=== PATIENT | female | born 1985 | race Caucasian/White ===

== ENCOUNTER 2018-06-05 21:29 | Inpatient (IN) | payer MEDICAID ==
[~2018-06-05] VITALS: Ht 154.9 cm; Wt 108.9 kg
[~2018-06-05 21:29] MED LIST: PNV1TABL76 MT
[2018-06-05 23:07] LABS: CLARITY URINE CLOUDY (CLEAR); COLOR URINE YELLOW (YELLOW); KETONES URINE TRACE (NEGATIVE); LEUKOCYTE ESTERASE URINE 1+ (NEGATIVE); NITRITE URINE NEGATIVE (NEGATIVE); OCCULT BLOOD URINE NEGATIVE (NEGATIVE); PH URINE 6.5 (4.5-8.0); PROTEIN URINE NEGATIVE (NEGATIVE)
[2018-06-05] MEDS: TERBUTALINE SULFATE 1MG/ML VIAL SUBCUT PRN (23:29)
[2018-06-05] MEDS ORDERED: CEFAZOLIN 2,000 MG in DEXT 5% WATER 100 ML IV SCH (23:30)
[2018-06-05] MEDS: LACTATED RINGERS 1,000 ML IV SCH (23:32)
[2018-06-06] MEDS ORDERED: CARBOPROST TROMETHAMINE 250 MCG/ML AMPUL IM PRN (01:00)
[2018-06-06] MEDS ORDERED: MISOPROSTOL 100MCG TABLET VG SCH (01:00)
[2018-06-06] MEDS ORDERED: BUTORPHANOL TARTRATE 2 MG/ML VIAL IV PRN ×3 (01:00→08:45)
[2018-06-06] MEDS ORDERED: DEXT 5%/LR + PITOCIN 20UNITS/L 1,000 ML IV SCH ×2 (01:00→07:30)
[2018-06-06] MEDS ORDERED: METHYLERGONOVINE MALEATE 0.2 MG/ML IM PRN (01:00)
[2018-06-06] MEDS ORDERED: NALOXONE HCL 0.4 MG/ML 1ML VIAL IM PRN (01:00)
[2018-06-06 01:26] LABS: BASOPHILS % 0.1 % (0.0-2.0); EOSINOPHILS % 0.8 % (0.0-5.0); HEMATOCRIT. 36.1 % (36.0-48.0); LYMPHOCYTES % 18.5 % (20.0-50.0); MEAN CORPUSCULAR VOLUME 90.2 fL (81.0-99.0); MEAN PLATELET VOLUME 10.4 fl (7.4-10.4); MONOCYTES % 6.4 % (2.0-8.0); NEUTROPHILS % 74.2 % (40.0-76.0); PLATELET 224 x1000/uL (130-400); RED CELL DISTRIBUTION WIDTH 14.3 % (11.6-14.6)
[2018-06-06 01:34] LABS: *AMPHETAMINES SCREEN URINE NEGATIVE (NEGATIVE); *BARBITURATES SCREEN URINE NEGATIVE (NEGATIVE); *BENZODIAZEPINES SCREEN URINE NEGATIVE (NEGATIVE); *COCAINE SCREEN URINE NEGATIVE (NEGATIVE); METHADONE URINE SCREEN NEGATIVE (NEGATIVE); OPIATES URINE SCREEN NEGATIVE (NEGATIVE)
[2018-06-06 01:35] LABS: CANNABINOID URINE SCREEN NEGATIVE (NEGATIVE); PHENCYCLIDINE URINE SCREEN NEGATIVE (NEGATIVE)
[2018-06-06] MEDS ORDERED: EPHEDRINE SULFATE 50MG/ML VIAL ONE (02:11)
[2018-06-06] MEDS ORDERED: OXYTOCIN 10 UNITS/ML 1ML ONE ×2 (02:11→06:33)
[2018-06-06] MEDS ORDERED: SODIUM CHLORIDE 0.9% 10ML VIAL ONE (02:11)
[2018-06-06] MEDS ORDERED: FENTANYL CITRATE/PF 50MCG/ML 2ML VIAL ONE (02:11)
[2018-06-06] MEDS ORDERED: GLYCOPYRROLATE 0.2 MG/ML 2ML VIAL ONE (02:11)
[2018-06-06] MEDS ORDERED: ONDANSETRON HCL 4MG/2ML INJ ONE (02:11)
[2018-06-06] MEDS ORDERED: PHENYLEPHRINE HCL 10 MG/ML 1ML (IV VIAL) IV ONE (02:11)
[2018-06-06] MEDS ORDERED: MORPHINE SULFATE/PF 1MG/ML 10ML AMP ONE (02:12)
[2018-06-06] MEDS ORDERED: BUPIVACAINE HCL/DEXTROSE/PF 0.75% 2ML AMP INJ ONE (02:12)
[2018-06-06 02:32] LABS: PARTIAL THROMBOPLASTIN TIME 23.6 sec (23.4-31.0); PROTHROMBIN TIME 9.6 sec (9.1-11.1)
[2018-06-06 02:38] LABS: HEPATITIS B SURFACE ANTIGEN NEGATIVE
[2018-06-06] MEDS ORDERED: CEFAZOLIN 2000MG PREMIX 50 ML IV ONE (02:48)
[2018-06-06] MEDS: TERBUTALINE SULFATE 1MG/ML VIAL SUBCUT PRN (03:13)
[2018-06-06] MEDS: LACTATED RINGERS 1,000 ML IV SCH ×2 (04:10→05:53)
[2018-06-06] MEDS ORDERED: DIPHENHYDRAMINE 50MG/ML VIAL ONE (06:25)
[2018-06-06] MEDS ORDERED: RHO(D) IMMUNE GLOBULIN 300 MCG/SYR IM PRN (07:00)
[2018-06-06] MEDS ORDERED: DIPHENHYDRAMINE 25MG CAPSULE PO PRN (07:00)
[2018-06-06] MEDS ORDERED: HEMORRHOIDAL SUPP PR PRN (07:00)
[2018-06-06] MEDS ORDERED: IBUPROFEN 400MG TABLET PO PRN (07:00)
[2018-06-06] MEDS ORDERED: LANOLIN OINT 0.25 GM TUBE TOP PRN (07:00)
[2018-06-06] MEDS ORDERED: BISACODYL 10MG SUPP PR PRN (07:00)
[2018-06-06] MEDS ORDERED: HYDROCODONE/ACETAMINOPHEN 5/325MG TABLET PO PRN (07:00)
[2018-06-06] MEDS ORDERED: ONDANSETRON HCL 4MG/2ML INJ IV PRN (07:00)
[2018-06-06] MEDS ORDERED: KETOROLAC 60MG/2ML VIAL IM ONE (07:08)
[2018-06-06] MEDS ORDERED: DIPHENHYDRAMINE 50MG/ML VIAL IV PRN (08:45)
[2018-06-06] MEDS ORDERED: NALOXONE HCL 0.4 MG/ML 1ML VIAL IV PRN (08:45)
[2018-06-06] MEDS ORDERED: FENTANYL CITRATE/PF 50MCG/ML 2ML VIAL IV PRN (08:45)
[2018-06-06 09:40] VITALS: BP 104/51
[2018-06-06] MEDS: PRENATAL VIT/FE FUMARATE/FA TABLET PO SCH (09:40)
[2018-06-06] MEDS: MAGNESIUM/ALUMINUM HYDROXIDE/SIMETHICONE 30ML UDC PO SCH ×3 (09:40→20:59)
[2018-06-06 10:10] VITALS: BP 101/65
[2018-06-06 10:40] VITALS: BP 102/58
[2018-06-06 16:20] VITALS: BP 93/54
[2018-06-06 20:00] VITALS: BP 100/63
[2018-06-06] MEDS: DOCUSATE SODIUM 100MG CAPSULE PO SCH (20:59)
[2018-06-06] MEDS: KETOROLAC 30MG/ML VIAL IV PRN (21:00)
[2018-06-07 01:22] VITALS: BP 97/53
[2018-06-07] MEDS: KETOROLAC 30MG/ML VIAL IV PRN (03:05)
[2018-06-07 06:34] LABS: BASOPHILS % 0.1 % (0.0-2.0); EOSINOPHILS % 0.9 % (0.0-5.0); HEMATOCRIT. 28.3 % (36.0-48.0); HEMOGLOBIN. 9.9 g/dL (12.0-16.0); LYMPHOCYTES % 11.9 % (20.0-50.0); MEAN CORPUSCULAR HEMOGLOBIN 31.4 pg (28.0-32.0); MEAN CORPUSCULAR VOLUME 90.1 fL (81.0-99.0); MEAN PLATELET VOLUME 9.4 fl (7.4-10.4); MONOCYTES % 6.1 % (2.0-8.0); PLATELET 171 x1000/uL (130-400); RED BLOOD CELL COUNT 3.14 mill/uL (4.2-5.4); RED CELL DISTRIBUTION WIDTH 14.4 % (11.6-14.6)
[2018-06-07 08:00] VITALS: BP 98/56
[2018-06-07] MEDS: FERROUS SULFATE 325MG TABLET PO SCH ×3 (09:40→17:54)
[2018-06-07] MEDS: PRENATAL VIT/FE FUMARATE/FA TABLET PO SCH (09:40)
[2018-06-07] MEDS: MAGNESIUM/ALUMINUM HYDROXIDE/SIMETHICONE 30ML UDC PO SCH ×3 (09:41→22:25)
[2018-06-07] MEDS: ACETAMINOPHEN WITH CODEINE 300/30MG TABLET PO PRN ×3 (09:52→22:26)
[2018-06-07 17:00] VITALS: BP 104/69
[2018-06-07 19:30] VITALS: BP 116/70
[2018-06-07] MEDS: DOCUSATE SODIUM 100MG CAPSULE PO SCH (22:24)
[2018-06-07 22:26] VITALS: BP 114/72
[2018-06-08 01:40] VITALS: BP 120/76
[2018-06-08] MEDS: ACETAMINOPHEN WITH CODEINE 300/30MG TABLET PO PRN ×3 (01:40→16:24)
[2018-06-08 05:00] VITALS: BP 126/84
[2018-06-08] MEDS: FERROUS SULFATE 325MG TABLET PO SCH (08:16)
[2018-06-08] MEDS: PRENATAL VIT/FE FUMARATE/FA TABLET PO SCH (08:16)
[2018-06-08 08:30] VITALS: BP 113/75
[2018-06-08 16:39] VITALS: BP 114/76
[2018-06-08 20:00] VITALS: BP 131/82
[2018-06-08] MEDS ORDERED: TETANUS, DIPHTHERIA, PERTUSSIS VAC/PF 0.5ML (>7YR OLD) IM ONE (21:00)
[2018-06-09] MEDS: ACETAMINOPHEN WITH CODEINE 300/30MG TABLET PO PRN ×2 (00:23→10:11)
[2018-06-09 04:00] VITALS: BP 131/82
[2018-06-09 08:00] VITALS: BP 122/74
[2018-06-09] MEDS: PRENATAL VIT/FE FUMARATE/FA TABLET PO SCH (10:02)
[2018-06-09] MEDS: MAGNESIUM/ALUMINUM HYDROXIDE/SIMETHICONE 30ML UDC PO SCH (10:03)
[2018-06-09] MEDS: FERROUS SULFATE 325MG TABLET PO SCH (10:03)
[2018-06-09 10:11] VITALS: BP 131/82
== END 2018-06-09 14:50 | disposition home or self-care (01) | DRG 540 ==
LOC: 8 EST LDRP 21:29 → OBSVTOIN 21:29 → 8EST 06-06 09:40
PROVIDERS: ADMIT Obstetrics & Gynecology; ATTEND Obstetrics & Gynecology
PROC: 10D00Z1 Extraction of Products of Conception, Low, Open Approach (ICD-10-PCS; principal; 2018-06-06)
DX: O32.1XX0 Maternal care for breech presentation, not applicable or unspecified (principal); D62 Acute posthemorrhagic anemia; Z37.0 Single live birth; O99.214 Obesity complicating childbirth; E66.01 Morbid (severe) obesity due to excess calories; O90.81 Anemia of the puerperium; O34.211 Maternal care for low transverse scar from previous cesarean delivery; Z3A.37 37 weeks gestation of pregnancy
CPT/HCPCS: 36415; 76805; 76818; 80305; 86592; 86703; 86762; 86850; 86900; 87340; 88307; 90715; 99281; G0378; J0690; J1200; J1885; J2274; J2370; J2405; J2590; J3010; J3105; J3490; J7060; J7120; A4315

== ENCOUNTER 2021-12-10 08:30 | Inpatient (IN) | payer MEDICAID ==
[~2021-12-10] VITALS: Ht 154.9 cm; Wt 117.9 kg
[2021-12-10] MEDS ORDERED: RHO(D) IMMUNE GLOBULIN 300 MCG/SYR IM ONE (10:00)
[2021-12-10] MEDS ORDERED: DEXT 5%/LACTATED RINGERS 1,000 ML IV SCH (10:00)
[2021-12-10 10:45] LABS: CLARITY URINE CLEAR (CLEAR); COLOR URINE YELLOW (YELLOW); KETONES URINE NEGATIVE (NEGATIVE); LEUKOCYTE ESTERASE URINE TRACE (NEGATIVE); NITRITE URINE NEGATIVE (NEGATIVE); OCCULT BLOOD URINE NEGATIVE (NEGATIVE); PROTEIN URINE NEGATIVE (NEGATIVE); SPECIFIC GRAVITY URINE 1.007 (1.005-1.030); UROBILINOGEN URINE 0.2 E.U./dL (0.2-1.0)
[2021-12-10 10:47] LABS: BASOPHILS % 0.3 % (0.0-2.0); EOSINOPHILS % 0.9 % (0.0-5.0); HEMATOCRIT. 36.2 % (36.0-48.0); MEAN CORPUSCULAR HEMOGLOBIN 29.6 pg (28.0-32.0); MEAN CORPUSCULAR VOLUME 89.1 fL (81.0-99.0); MEAN PLATELET VOLUME 9.7 fl (7.4-10.4); MONOCYTES % 5.5 % (2.0-8.0); NEUTROPHILS % 79.3 % (40.0-76.0); PLATELET 208 x1000/uL (130-400); RED BLOOD CELL COUNT 4.07 mill/uL (4.2-5.4)
[2021-12-10 10:59] LABS: PARTIAL THROMBOPLASTIN TIME 26.2 sec (23.4-31.0); PROTHROMBIN TIME 10.5 sec (9.6-11.0)
[2021-12-10 11:02] LABS: *AMPHETAMINES SCREEN URINE NEGATIVE (NEGATIVE); *BARBITURATES SCREEN URINE NEGATIVE (NEGATIVE); *BENZODIAZEPINES SCREEN URINE NEGATIVE (NEGATIVE); *COCAINE SCREEN URINE NEGATIVE (NEGATIVE); CANNABINOID URINE SCREEN NEGATIVE (NEGATIVE); METHADONE URINE SCREEN NEGATIVE (NEGATIVE); OPIATES URINE SCREEN NEGATIVE (NEGATIVE); PHENCYCLIDINE URINE SCREEN NEGATIVE (NEGATIVE)
[2021-12-10 13:29] LABS: HEPATITIS B SURFACE ANTIGEN NEGATIVE
[2021-12-10] MEDS ORDERED: MORPHINE SULFATE/PF 1MG/ML 10ML AMP ONE (14:20)
[2021-12-10] MEDS ORDERED: OXYTOCIN 10 UNITS/ML 1ML ONE (14:20)
[2021-12-10] MEDS ORDERED: KETOROLAC 60MG/2ML VIAL IM ONE (14:24)
[2021-12-10] MEDS ORDERED: DEXAMETHASONE 4MG/ML 1ML VIAL ONE (14:24)
[2021-12-10] MEDS ORDERED: ONDANSETRON HCL 4MG/2ML INJ ONE (14:24)
[2021-12-10] MEDS ORDERED: CEFAZOLIN SODIUM 1000MG/VIAL ONE (14:24)
[2021-12-10] MEDS ORDERED: LACTATED RINGERS 1,000 ML IV SCH (16:00)
[2021-12-10] MEDS ORDERED: FENTANYL CITRATE/PF 50MCG/ML 2ML VIAL IV PRN (17:00)
[2021-12-10] MEDS ORDERED: MORPHINE SULFATE 10 MG/ML CPJ IV PRN (17:00)
[2021-12-10] MEDS ORDERED: NALOXONE HCL 0.4 MG/ML 1ML VIAL IV PRN (17:00)
[2021-12-10 20:00] VITALS: BP 122/61
[2021-12-10 22:35] VITALS: BP 101/58
[2021-12-10] MEDS: OXYTOCIN 30 UNITS/500ML NS PMX 500 ML IV SCH (22:35)
[2021-12-11] VITALS: BP 103/57
[2021-12-11 04:00] VITALS: BP 104/60
[2021-12-11] MEDS: OXYTOCIN 30 UNITS/500ML NS PMX 500 ML IV SCH (04:08)
[2021-12-11] MEDS: KETOROLAC 30MG/ML VIAL IV PRN ×2 (04:08→10:27)
[2021-12-11 07:45] VITALS: BP 92/54
[2021-12-11] MEDS ORDERED: ONDANSETRON HCL 4MG/2ML INJ IV PRN (09:00)
[2021-12-11] MEDS ORDERED: HYDROCODONE/ACETAMINOPHEN 5/325MG TABLET PO PRN (09:00)
[2021-12-11] MEDS ORDERED: OXYTOCIN 30 UNITS/500ML NS PMX 500 ML IV SCH (09:00)
[2021-12-11] MEDS ORDERED: LANOLIN OINT 7GM TUBE TOP PRN (09:00)
[2021-12-11] MEDS ORDERED: RHO(D) IMMUNE GLOBULIN 300 MCG/SYR IM PRN (09:00)
[2021-12-11 09:30] LABS: BASOPHILS % 0.2 % (0.0-2.0); EOSINOPHILS % 0.3 % (0.0-5.0); HEMATOCRIT. 30.9 % (36.0-48.0); HEMOGLOBIN. 10.4 g/dL (12.0-16.0); LYMPHOCYTES % 11.7 % (20.0-50.0); MEAN CORPUSCULAR HEMOGLOBIN 30.2 pg (28.0-32.0); MEAN CORPUSCULAR VOLUME 90.1 fL (81.0-99.0); MEAN PLATELET VOLUME 9.8 fl (7.4-10.4); MONOCYTES % 7.1 % (2.0-8.0); NEUTROPHILS % 80.7 % (40.0-76.0); PLATELET 195 x1000/uL (130-400); RED BLOOD CELL COUNT 3.44 mill/uL (4.2-5.4); RED CELL DISTRIBUTION WIDTH 14.2 % (11.6-14.6)
[2021-12-11] MEDS ORDERED: NALOXONE HCL 0.4MG/ML VIAL IV PRN (09:30)
[2021-12-11 16:55] VITALS: BP 98/63
[2021-12-11 20:00] VITALS: BP 102/59
[2021-12-11] MEDS ORDERED: DIPHENHYDRAMINE 25MG CAPSULE PO PRN (21:00)
[2021-12-11] MEDS: HYDROCODONE/ACETAMINOPHEN 5/325MG TABLET PO PRN (23:55)
[2021-12-11] MEDS: DOCUSATE SODIUM 100MG CAPSULE PO SCH (23:56)
[2021-12-12 03:57] VITALS: BP 102/63
[2021-12-12 08:10] VITALS: BP 115/66
[2021-12-12] MEDS: PRENATAL VIT/FE FUMARATE/FA TABLET PO SCH (08:24)
[2021-12-12] MEDS: HYDROCODONE/ACETAMINOPHEN 5/325MG TABLET PO PRN ×2 (08:24→13:24)
[2021-12-12 16:45] VITALS: BP 110/73
[2021-12-12 20:00] VITALS: BP 112/65
[2021-12-12] MEDS: DOCUSATE SODIUM 100MG CAPSULE PO SCH (20:47)
[2021-12-12] MEDS: IBUPROFEN 400MG TABLET PO PRN (20:48)
[2021-12-13] MEDS: IBUPROFEN 400MG TABLET PO PRN ×2 (03:28→10:28)
[2021-12-13 04:00] VITALS: BP 114/68
[2021-12-13 08:10] VITALS: BP 98/68
[2021-12-13] MEDS ORDERED: IBUP-2030 MT (09:06)
[2021-12-13] MEDS: PRENATAL VIT/FE FUMARATE/FA TABLET PO SCH (10:29)
== END 2021-12-13 13:15 | disposition home or self-care (01) | DRG 539 ==
LOC: OBSVTOIN 08:30 → 8 EST LDRP 08:30 → 8EST 20:55
PROVIDERS: ADMIT Obstetrics & Gynecology; ATTEND Obstetrics & Gynecology
PROC: 10D00Z1 Extraction of Products of Conception, Low, Open Approach (ICD-10-PCS; principal; 2021-12-10)
PROC: 0UB70ZZ Excision of Bilateral Fallopian Tubes, Open Approach (ICD-10-PCS; 2021-12-10)
DX: O34.219 Maternal care for unspecified type scar from previous cesarean delivery (principal); O99.03 Anemia complicating the puerperium; Z20.822 Contact with and (suspected) exposure to COVID-19; Z37.0 Single live birth; Z3A.38 38 weeks gestation of pregnancy; Z90.49 Acquired absence of other specified parts of digestive tract; Z30.2 Encounter for sterilization
CPT/HCPCS: 36415; 76815; 76818; 80305; 81003; 85025; 86592; 86703; 86762; 86850; 86900; 87340; 87426; 88302; 88307; 99281; J0690; J1100; J1885; J2274; J2405; J7120; J2590

== ENCOUNTER 2021-12-24 21:56 | Inpatient (IN) | payer MEDICAID ==
[~2021-12-24] VITALS: Ht 154.9 cm; Wt 109.5 kg
[~2021-12-24 21:56] MED LIST changes: +IBUP-2030 MT; -PNV1TABL76 MT
[2021-12-25] MEDS ORDERED: SODIUM CHLORIDE 0.9% 1000ML BAG (SEPSIS BOLUS) IV ONE (01:30)
[2021-12-25] MEDS ORDERED: CEFAZOLIN 1000MG PREMIX 50 ML IV ONE (02:15)
[2021-12-25 02:27] LABS: BASOPHILS % 0.6 % (0.0-2.0); HEMATOCRIT. 35.6 % (36.0-48.0); HEMOGLOBIN. 12.1 g/dL (12.0-16.0); LYMPHOCYTES % 16.8 % (20.0-50.0); MEAN CORPUSCULAR VOLUME 88.2 fL (81.0-99.0); MEAN PLATELET VOLUME 9.5 fl (7.4-10.4); MONOCYTES % 6.1 % (2.0-8.0); NEUTROPHILS % 73.5 % (40.0-76.0); PLATELET 258 x1000/uL (130-400); RED BLOOD CELL COUNT 4.04 mill/uL (4.2-5.4); RED CELL DISTRIBUTION WIDTH 14.4 % (11.6-14.6)
[2021-12-25 02:35] LABS: CHLORIDE 106 mEq/L (98-107)
[2021-12-25 02:46] LABS: PROTHROMBIN TIME 10.9 sec (9.6-11.0)
[2021-12-25] MEDS ORDERED: IOHEXOL-300 100 ML BOTTLE ONE (03:35)
[2021-12-25] MEDS ORDERED: CEFAZOLIN 1000MG PREMIX 50 ML IV NR (03:45)
[2021-12-25 04:06] LABS: CLARITY URINE CLEAR (CLEAR); COLOR URINE ORANGE (YELLOW); KETONES URINE NEGATIVE (NEGATIVE); LEUKOCYTE ESTERASE URINE 3+ (NEGATIVE); NITRITE URINE NEGATIVE (NEGATIVE); OCCULT BLOOD URINE 3+ (NEGATIVE); PROTEIN URINE NEGATIVE (NEGATIVE); SPECIFIC GRAVITY URINE 1.014 (1.005-1.030); UROBILINOGEN URINE 0.2 E.U./dL (0.2-1.0)
[2021-12-25 07:30] VITALS: BP 117/68
[2021-12-25] MEDS ORDERED: CEPH500T PO (09:15)
== END 2021-12-25 11:10 | disposition home or self-care (01) | DRG 561 ==
LOC: ER 21:56 → 6EST 12-25 03:15 → EDBEDREQTM 12-25 03:54 → EDBEDREQ 12-25 03:54 → ENRESERV 12-25 07:59 → CANRESERV 12-25 07:59 → CANBEDREQ 12-25 08:41 → MICUSO 12-25 09:31
PROVIDERS: ADMIT Obstetrics & Gynecology; ATTEND Obstetrics & Gynecology
DX: O86.00 Infection of obstetric surgical wound, unspecified (principal); Z90.49 Acquired absence of other specified parts of digestive tract
CPT/HCPCS: 36415; 74177; 80053; 81003; 83605; 84145; 85025; 87070; 87077; 87186; 99285; J0690; J7030; Q9967